=== PATIENT | female | born 2000 | race Caucasian/White ===

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

== ENCOUNTER 2020-01-08 01:43 | Emergency (ER) | payer MEDICAID ==
[~2020-01-08] VITALS: Ht 182 cm; Wt 108.0 kg
--- NOTE | 2020-01-08 02:07 | ED GU-Female ---
General Chief Complaint: OB < 20 WEEKS Stated Complaint: CRAMPING, 19 WKS PREG History of Present Illness Date Seen by Provider: Jan 08, 2020 Time Seen by Provider: 02:02 Initial Comments 19-year-old female presents with lower abdominal cramping. Patient reports that yesterday she was 19 weeks . That she is had cramping since yesterday morning. She denies any vaginal bleeding, urinary symptoms, nausea, vomiting. Patient came is because she wanted her baby evaluated. She has no other systemic complaints. Patient reports that she can feel the baby moving. Allergies and Home Medications Allergies Uncoded Allergies: PAPER TAPE (Allergy, Unknown, 01/23/19) Home Medications Cephalexin 500 Mg Tablet, 500 MG PO TID Prescribed by: HUGO BEAN on 01/23/19 1624 Methocarbamol 750 Mg Tablet, 750 MG PO Q4H PRN for PAIN-MODERATE (5-7) Prescribed by: JEN GARCIA on 03/20/19 1406 Patient Home Medication List Home Medication List Reviewed: Yes Review of Systems Review of Systems Constitutional: No chills, No fever Respiratory: no symptoms reported Cardiovascular: no symptoms reported Gastrointestinal: see HPI Genitourinary: see HPI : Yes Musculoskeletal: no symptoms reported Skin: no symptoms reported Psychiatric/Neurological: No Symptoms Reported Past Rmzfdou-Pfpimj-Rrrgnm Hx Past Med/Social Hx: Reviewed Nursing Past Med/Soc Hx Patient Social History Type Used: Cigarettes 2nd Hand Smoke Exposure: Yes Recent Foreign Travel: No Contact w/Someone Who Travel: No Recent Hopitalizations: No Immunizations Up To Date Tetanus Booster (TDap): Unknown Seasonal Allergies Seasonal Allergies: No Past Medical History Surgeries: Yes (dental) Respiratory: No Cardiac: No Neurological: No Genitourinary: No Gastrointestinal: No Musculoskeletal: No Endocrine: No HEENT: No Cancer: No Psychosocial: Yes Anxiety, PTSD, Depression Integumentary: No Blood Disorders: No Family Medical History No Pertinent Family Hx Physical Exam Vital Signs Vital Signs - First Documented 01/08/20 02:01 Temp 36.6 Pulse 84 Resp 20 B/P (MAP) 113/83 Pulse Ox 97 O2 Delivery Room Air Capillary Refill : Height, Weight, BMI Height: '" Weight: lbs. oz. kg; 28.00 BMI Method: General Appearance: WD/WN, no apparent distress Cardiovascular: normal peripheral pulses, regular rate, rhythm Respiratory: lungs clear, normal breath sounds, no respiratory distress Gastrointestinal: non tender, soft Extremities: normal range of motion Neurologic/Psychiatric: alert, normal mood/affect, oriented x 3 Progress/Results/Core Measures Suspected Sepsis SIRS Temperature: Pulse: Respiratory Rate: Blood Pressure / Mean: Results/Orders Lab Results Laboratory Tests Test 01/08/20 02:20 Range/Units Urine Color YELLOW Urine Clarity CLEAR Urine pH 6.5 5-9 Urine Specific [place] 1.015 L 1.016-1.022 Urine Protein NEGATIVE NEGATIVE Urine Glucose (UA) NEGATIVE NEGATIVE Urine Ketones NEGATIVE NEGATIVE Urine Nitrite NEGATIVE NEGATIVE Urine Bilirubin NEGATIVE NEGATIVE Urine Urobilinogen 0.2 < = 1.0 MG/DL Urine Leukocyte Esterase NEGATIVE NEGATIVE Urine RBC (Auto) NEGATIVE NEGATIVE Urine RBC NONE /HPF Urine WBC 0-2 /HPF Urine Squamous Epithelial Cells 10-25 H /HPF Urine Crystals NONE /LPF Urine Bacteria FEW H /HPF Urine Casts NONE /LPF Urine Mucus SMALL H /LPF Urine Culture Indicated YES My Orders Orders - HUNT,MICHELLE L DO Lactated Ringers (Lr 1000 Ml Iv Solution (01/08/20 02:09) Ed Iv/Invasive Line Start (01/08/20 02:09) Ua Culture If Indicated (01/08/20 02:09) Urine Culture (01/08/20 02:20) Vital Signs/I&O 01/08/20 02:01 Temp 36.6 Pulse 84 Resp 20 B/P (MAP) 113/83 Pulse Ox 97 O2 Delivery Room Air Capillary Refill : Progress Note : Time: 02:14 Progress Note Bedside ultrasound showed intrauterine with heart rate in the 150s. With frequent movement by the baby. UA shows contamination, we will culture but at this time will not started on exam antibiotics since there is a significant number of epithelial cells. She will be discharged home in stable condition Departure Impression Primary Impression: Abdominal cramping affecting Disposition: HOME, SELF-CARE Condition: Stable Departure-Patient Inst. Referrals: [facility] (PCP) Primary Care Physician CRISTO BURNETT (Family) Primary Care Physician Patient Instructions: - The Fifth Month, - The Fourth Month, Stomach Pain in Early , Taking in Enough Fluids While You are Add. 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 Voiced understanding. MICHELLE HUNT DO Jan 08, 2020 02:07
--- NOTE | 2020-01-08 02:08 | NUR ---
PT ARRIVES BY POV WITH C/O PELVIC CRAMPING; STATES SHE IS 19 WKS WITH HER FIRST . PT DENIES VAGINAL BLEEDING. PT STATES SHE WAS AT WORK AT A LOCAL [employer] WHEN THE CRAMPING GOT SO BAD SHE DECIDED TO COME TO THE ED. DR. HUNT TO ROOM FOR ASSESSMENT.
[2020-01-08] MEDS ORDERED: LACTATED RINGERS 1,000 ML IV STA (02:09)
[2020-01-08 02:27] LABS: BILIRUBIN,URINE NEGATIVE (NEGATIVE); CLARITY,URINE CLEAR; COLOR,URINE YELLOW; GLUCOSE, URINE (UA) NEGATIVE (NEGATIVE); KETONES,URINE NEGATIVE (NEGATIVE); LEUKOCYTE ESTERASE ,URINE NEGATIVE (NEGATIVE); NITRITE,URINE NEGATIVE (NEGATIVE); PH,URINE 6.5 (5-9); PROTEIN,URINE NEGATIVE (NEGATIVE)
[2020-01-08 02:47] LABS: BACTERIA,URINE FEW /HPF; WBC,URINE 0-2 /HPF
--- NOTE | 2020-01-08 03:00 | NUR ---
PT REPORTS SHE FEELS BETTER; D/C EDUCATION PROVIDED AND PT VERBALIZED AN UNDERSTANDING. IV D/C'D INTACT.
== END 2020-01-08 03:11 | disposition home or self-care (01) ==
LOC: EDUNIT# 01:43 → ER 01:46
DX: O26.892 Other specified pregnancy related conditions, second trimester (principal); R10.9 Unspecified abdominal pain; Z3A.19 19 weeks gestation of pregnancy; Z77.22 Contact with and (suspected) exposure to environmental tobacco smoke (acute) (chronic)
CPT/HCPCS: 81000; 87088

== ENCOUNTER 2020-01-17 19:27 | Emergency (ER) | payer MEDICAID ==
[~2020-01-17] VITALS: Ht 182.8 cm; Wt 106.5 kg
[2020-01-17] MEDS ORDERED: diphenhydrAMINE 50 MG/ML INJ (BENADRYL) IM ONE (20:15)
[2020-01-17] MEDS ORDERED: ACETAMINOPHEN 500 MG TAB (TYLENOL) PO ONE (20:15)
[2020-01-17] MEDS ORDERED: PROMETHAZINE INJ 25 MG/ML (PHENERGAN) AMP IM ONE (20:15)
[2020-01-17 20:30] LABS: BILIRUBIN,URINE NEGATIVE (NEGATIVE); CLARITY,URINE CLOUDY; COLOR,URINE YELLOW; GLUCOSE, URINE (UA) NEGATIVE (NEGATIVE); KETONES,URINE NEGATIVE (NEGATIVE); LEUKOCYTE ESTERASE ,URINE TRACE (NEGATIVE); NITRITE,URINE NEGATIVE (NEGATIVE); PH,URINE 7.5 (5-9); PROTEIN,URINE NEGATIVE (NEGATIVE)
[2020-01-17 20:37] LABS: BACTERIA,URINE MODERATE /HPF; SQUAMOUS EPITHELIAL CELL,UR 25-50 /HPF; WBC,URINE 0-2 /HPF
--- NOTE | 2020-01-17 21:10 | ED Headache ---
General Chief Complaint: Head/Cervical Problems Stated Complaint: MIGRAINE/BODY PAIN Nursing Triage Note: PT AMB TO TRIAGE WITH COMPLAINT OF HEADACHE. STATES STARTED TODAY. WENT TO [facility] AND WAS GIVEN FLONASE AND CLARITIN. STATES SHE IS 20 WEEKS . Source: patient Exam Limitations: no limitations History of Present Illness Date Seen by Provider: Jan 17, 2020 Time Seen by Provider: 20:16 Allergies and Home Medications Allergies Uncoded Allergies: PAPER TAPE (Allergy, Unknown, 01/23/19) Home Medications Cephalexin 500 Mg Tablet, 500 MG PO TID Prescribed by: HUGO BEAN on 01/23/19 1624 Methocarbamol 750 Mg Tablet, 750 MG PO Q4H PRN for PAIN-MODERATE (5-7) Prescribed by: JEN GARCIA on 03/20/19 1406 Past Osomaod-Wpyjri-Nywzpw Hx Patient Social History Alcohol Use: Denies Use Recreational Drug Use: No Smoking Status: Current Everyday Smoker Type Used: Cigarettes 2nd Hand Smoke Exposure: Yes Recent Foreign Travel: No Contact w/Someone Who Travel: No Recent Infectious Disease Expo: No Recent Hopitalizations: No Ebola Symptoms: Denies Symptoms Listed Immunizations Up To Date Tetanus Booster (TDap): Unknown Seasonal Allergies Seasonal Allergies: No Past Medical History Surgeries: Yes (dental) Respiratory: No Cardiac: No Neurological: No Hx : 1 Genitourinary: No Gastrointestinal: No Musculoskeletal: No Endocrine: No HEENT: No Cancer: No Psychosocial: Yes Anxiety, PTSD, Depression Integumentary: No Blood Disorders: No Family Medical History No Pertinent Family Hx Physical Exam Vital Signs Vital Signs - First Documented 01/17/20 19:57 Temp 36.0 Pulse 95 Resp 20 B/P (MAP) 111/74 Pulse Ox 98 O2 Delivery Room Air Capillary Refill : Height, Weight, BMI Height: '" Weight: lbs. oz. kg; 31.00 BMI Method: Progress/Results/Core Measures Results/Orders Lab Results Laboratory Tests Test 01/17/20 20:04 Range/Units Urine Color YELLOW Urine Clarity CLOUDY Urine pH 7.5 5-9 Urine Specific [place] 1.015 L 1.016-1.022 Urine Protein NEGATIVE NEGATIVE Urine Glucose (UA) NEGATIVE NEGATIVE Urine Ketones NEGATIVE NEGATIVE Urine Nitrite NEGATIVE NEGATIVE Urine Bilirubin NEGATIVE NEGATIVE Urine Urobilinogen 1.0 < = 1.0 MG/DL Urine Leukocyte Esterase TRACE H NEGATIVE Urine RBC (Auto) NEGATIVE NEGATIVE Urine RBC NONE /HPF Urine WBC 0-2 /HPF Urine Squamous Epithelial Cells 25-50 H /HPF Urine Crystals NONE /LPF Urine Bacteria MODERATE H /HPF Urine Casts NONE /LPF Urine Mucus SMALL H /LPF Urine Culture Indicated YES My Orders Orders - AGUSTÍN SLOAN Diphenhydramine Injection (Benadryl Inje (01/17/20 20:15) Acetaminophen Tablet (Tylenol Tablet) (01/17/20 20:15) Promethazine Injection (Phenergan Injec (01/17/20 20:15) Ua Culture If Indicated (01/17/20 20:21) Urine Culture (01/17/20 20:04) Medications Given in ED Current Medications Medications Dose Ordered Sig/Saji Route Start Time Stop Time Status Last Admin Dose Admin Acetaminophen 1,000 mg ONCE ONCE PO 01/17/20 20:15 01/17/20 20:17 DC 01/17/20 20:29 1,000 MG Diphenhydramine HCl 50 mg ONCE ONCE IM 01/17/20 20:15 01/17/20 20:17 DC 01/17/20 20:29 50 MG Promethazine HCl 25 mg ONCE ONCE IM 01/17/20 20:15 01/17/20 20:17 DC 01/17/20 20:29 25 MG Vital Signs/I&O 01/17/20 19:57 Temp 36.0 Pulse 95 Resp 20 B/P (MAP) 111/74 Pulse Ox 98 O2 Delivery Room Air Departure Impression Primary Impression: Migraine Disposition: 01 HOME, SELF-CARE Condition: Stable/Unchanged Departure-Patient Inst. Decision time for Depature: 21:09 Referrals: [facility] (PCP) Primary Care Physician CRISTO BURNETT (Family) Primary Care Physician Patient Instructions: Migraines in Adults Add. Discharge Instructions: You may continue to use Tylenol and Benadryl as needed for migraines. Follow-up with your OB and your primary care provider within 1 week for recheck. Return back to the emergency room for worsening symptoms or concerns as needed. All discharge instructions reviewed with patient and/or family. Voiced understanding. Work/School Note: Work Release Form Date Seen in the Emergency Department: Jan 17, 2020 Return to Work: Jan 18, 2020 Restrictions: No Restrictions AGUSTÍN SLOAN Jan 17, 2020 21:10
== END 2020-01-17 21:28 | disposition home or self-care (01) ==
LOC: ER 19:27 → EDUNIT# 19:27 → ER 21:28
DX: O99.352 Diseases of the nervous system complicating pregnancy, second trimester (principal); G43.909 Migraine, unspecified, not intractable, without status migrainosus; O99.332 Smoking (tobacco) complicating pregnancy, second trimester; F17.210 Nicotine dependence, cigarettes, uncomplicated; Z3A.20 20 weeks gestation of pregnancy
CPT/HCPCS: 81000; 87088; 99284

== ENCOUNTER 2020-02-28 02:13 | Emergency (ER) | payer MEDICAID ==
[~2020-02-28] VITALS: Ht 182.9 cm; Wt 101.2 kg
[2020-02-28 02:26] VITALS: BP 121/86
[2020-02-28] MEDS ORDERED: AMOXICILLIN 500 MG (POLYMOX) CAP PO STA (02:48)
--- NOTE | 2020-02-28 02:56 | ED EENT ---
History of Present Illness General Chief Complaint: Dental Problems/Pain Stated Complaint: DENTAL PAIN,COUGH,26 WKS PREG Nursing Triage Note: Pt ambulates to room #6 with c/o dental pain. Pt reports discomfort to L upper et lower distal teeth began to cause discomfort approx x2days ago. Pt reports at 0130 this morning she applied orajel with little to no relief in s/s. Pt reports she has not seen a dentist for s/s. Pt reports she is approx 26wks . . A&OX4. Source: patient Exam Limitations: no limitations History of Present Illness Date Seen by Provider: Feb 28, 2020 Time Seen by Provider: 02:45 Initial Comments Patient is 26 weeks . Here with report of left lower posterior jaw pain. States that she has a chipped tooth there but it has not traditionally given her problems. She does admit that her wisdom teeth are starting to cut through. She tried Orajel tonight over that area which helped for about a half hour but then pain came back much more worse. Denies fever or chills. Denies swallowing or breathing problems. No significant swelling. Timing/Duration: gradual, this evening Severity: moderate Location: mouth, dental Prearrival Treatment: over the counter meds Associated Symptoms: No drooling; facial pain/swelling; No fever, No malaise, No nasal congestion/drainage, No sore throat; tooth pain; No voice change Allergies and Home Medications Allergies Uncoded Allergies: PAPER TAPE (Allergy, Unknown, 01/23/19) Home Medications Cephalexin 500 Mg Tablet, 500 MG PO TID Prescribed by: HUGO BEAN on 01/23/19 1624 Methocarbamol 750 Mg Tablet, 750 MG PO Q4H PRN for PAIN-MODERATE (5-7) Prescribed by: JEN GARCIA on 03/20/19 1406 Patient Home Medication List Home Medication List Reviewed: Yes Review of Systems Review of Systems Constitutional: see HPI Ears: Pain (below left ear); Denies Bloody Discharge Nose: no symptoms reported Mouth: see HPI, pain; denies swelling Throat: no symptoms reported Respiratory: no symptoms reported Cardiovascular: no symptoms reported Past Ssqjqdt-Frzgtw-Qdccsp Hx Past Med/Social Hx: Reviewed Nursing Past Med/Soc Hx Patient Social History Alcohol Use: Denies Use Recreational Drug Use: No Smoking Status: Current Everyday Smoker Type Used: Cigarettes 2nd Hand Smoke Exposure: Yes Recent Foreign Travel: No Contact w/Someone Who Travel: No Recent Infectious Disease Expo: No Recent Hopitalizations: No Immunizations Up To Date Tetanus Booster (TDap): Unknown Seasonal Allergies Seasonal Allergies: No Past Medical History Surgeries: Yes (dental) Respiratory: No Cardiac: No Neurological: No Genitourinary: No Gastrointestinal: No Musculoskeletal: No Endocrine: No HEENT: No Cancer: No Psychosocial: Yes Anxiety, PTSD, Depression Integumentary: No Blood Disorders: No Family Medical History Reviewed Nursing Family Hx No Pertinent Family Hx Physical Exam Vital Signs Vital Signs - First Documented 02/28/20 02:26 Temp 36.3 Pulse 87 Resp 17 B/P (MAP) 121/86 (98) Pulse Ox 98 O2 Delivery Room Air Height, Weight, BMI Height: '" Weight: lbs. oz. kg; 30.00 BMI Method: General Appearance: WD/WN, mild distress Ears: bilateral ear auricle normal, bilateral ear canal normal, bilateral ear TM normal Nose: normal inspection Mouth/Throat: dental tenderness (left posterior rear molar and wisdom tooth area.), other (tenderness mostly above listed and case with slight inflammation of mucus without abscess) Neck: full range of motion, supple Cardiovascular: regular rate, rhythm, no murmur Respiratory: lungs clear, normal breath sounds Neurologic/Psychiatric: alert, oriented x 3 Skin: normal color, warm/dry Progress/Results/Core Measures Results/Orders My Orders Orders - VINOD RAPP MD Amoxicillin 500mg Po (02/28/20 02:48) Rx-Acetaminophen/Codeine (Rx-Tylenol #3) (02/28/20 03:00) Vital Signs/I&O 02/28/20 02:26 Temp 36.3 Pulse 87 Resp 17 B/P (MAP) 121/86 (98) Pulse Ox 98 O2 Delivery Room Air Blood Pressure Mean: 98 Progress Progress Note : Progress Note Seen and evaluated. Amoxicillin 500 mg by mouth. T3 Rx pack given. Discharged home with return precautions. Patient verbalize understanding of instructions and agreement with plan. Departure Impression Primary Impression: Acute pericoronitis Disposition: 01 HOME, SELF-CARE Condition: Stable Departure-Patient Inst. Decision time for Depature: 02:54 Referrals: [facility] (PCP) Primary Care Physician BURNETT,CRISTO R CFNP (Family) Primary Care Physician Patient Instructions: Dental Pain (DC) Add. Discharge Instructions: All discharge instructions reviewed with patient and/or family. Voiced understanding. Use mouthwash as directed. You may take Tylenol one extra strength tablet every 6 hours as needed for pain if you are taking it with the pain medicine that was given to you. If you are not taking the pain medicine given to you you may take 2 Tylenol extra strength tablets every 6 hours as needed for pain not to exceed 4000 mg in 24 hours. Take antibiotics as directed. Return for worse pain, swelling, problems swallowing or breathing, fever or other concerns as needed. You do need to follow-up with a dentist for further evaluation. Scripts Chlorhexidine Gluconate (Peridex) 473 Ml Mouthwash 15 ML MM BID, #473 ML 0 Refills Use as mouthwash rinses for 30 seconds and then spit twice daily. Do not swallow. Prov: VINOD RAPP MD 02/28/20 Amoxicillin (Amoxicillin) 500 Mg Capsule 500 MG PO TID, #21 CAP 0 Refills Prov: VINOD RAPP MD 02/28/20 Work/School Note: Work Release Form Date Seen in the Emergency Department: Feb 28, 2020 Return to Work: Feb 29, 2020 Restrictions: No Restrictions VINOD RAPP MD Feb 28, 2020 02:55
[2020-02-28] MEDS ORDERED: AMOX500C2 PO (02:59)
[2020-02-28] MEDS ORDERED: CHLO473M4 MM (02:59)
[2020-02-28] MEDS ORDERED: RX-ACETAMINOPHEN/CODEINE TAB PPK #4 PO SCH (03:00)
== END 2020-02-28 03:07 | disposition home or self-care (01) ==
LOC: EDUNIT# 02:13 → ER 02:18
DX: O26.892 Other specified pregnancy related conditions, second trimester (principal); K05.20 Aggressive periodontitis, unspecified; F17.210 Nicotine dependence, cigarettes, uncomplicated; Z3A.26 26 weeks gestation of pregnancy
CPT/HCPCS: 99283